=== PATIENT | male | born 1955 | race Caucasian/White ===

== ENCOUNTER 2020-08-25 13:54 | Outpatient (CLI) | payer MEDICARE, MEDICAID, SELFPAY ==
--- NOTE | 2020-08-25 06:00 | DI.RAD_ITS ---
Exam(s) XR PAIN CLINIC SACRIOILIAC 2V EXAM: XR PAIN CLINIC SACRIOILIAC 2V CLINICAL HISTORY: Dx: Sacroiliac Joint Dysfunction TECHNIQUE: 2D and realtime digital imaging was performed. CONTRAST MATERIAL: Refer to procedure report. COMPARISON: No exams were available for comparison FINDINGS: Fluoroscopy was provided for Dr. Espinal during the performance of a sacroiliac joint injection. Please refer to the procedure report for complete details. Ka,r=10.28 mGy IMPRESSION:
[2020-08-25 14:16] LABS: Platelet Count 112 10^3/uL (130-400)
[2020-08-25 14:31] VITALS: BP 112/69; PULSE 78; RESP 17; TEMP 36.5; O2SAT 96
--- NOTE | 2020-08-25 14:37 | PDOC.PAIN_ITS ---
Pain Clinic Procedure Note Procedure Note Procedure Note: INTRA-ARTICULAR SI JOINT INJECTION SKIP JOHNSON has been referred to the [facility] for intra- articular SI joint injection. Pre-operative diagnosis: sacroiliac joint dysfunction Post-operative diagnosis: same as above COMMENTS: patient has functionally impairing right sided low back pain with radiation to buttock Patient was interviewed and the medical record reviewed. There were no medical, pharmacologic, radiographic or other structural contraindications to attempting fluoroscopically guided intra-articular SI joint injection. Risks and expected side effects as well as potential benefit of the procedure were reviewed and voiced concerns addressed. The printed consent form was signed and witnessed. Standard time-out procedure was performed. Patient was placed in the prone position on the fluoroscopy table and automated blood pressure cuff and pulse oximeter applied. The skin entry point for approaching right SI joints was identified under the most advantageous fluoroscopic view and marked. Following thorough Chlorhexadine preparation of the skin and draping and 1% lidocaine infiltration of the skin entry point and subcutaneous tissues, a 22 gauge spinal needle was placed under fluoroscopic guidance into right SI joints was identified under the most advantageous fluoroscopic view and marked. Following thorough Chlorhexadine preparation of the skin and draping and 1% lidocaine infiltration of the skin entry point and subcutaneous tissues, a 22 gauge spinal needle was placed under fluoroscopic guidance into right SI joint. Intra-articular placement was confirmed by a clear arthrogram resulting from the injection of 0.25ml Omnipaque 240, 1ml 1% lidocaine, and 40mg Depomedrol were injected intra-articularily with an initial reproduction of a significant component of the usual pain. Vital signs were stable throughout the procedure and were as recorded in the docflowsheet by the nursing staff. Follow up plans and appointments were discussed with the patient. Post procedure instruction was given as documented in nursing documentation and having met discharge criteria, and was discharged from the [facility]. COMMENTS: patient tolerated procedure well. Pre-procedure VAS 8 out of 10 and post-procedure VAS score 6/10. Missael Espinal MD Pain Management CC: Emily [email or web address]
[2020-08-25 15:09] VITALS: BP 113/79; PULSE 76; RESP 18; O2SAT 96
[2020-08-25] MEDS: Omnipaque 240 MG/ML 50 ML BTL IJ (15:14)
[2020-08-25] MEDS: methylPREDNISolone ACETATE 80 MG/ML VIAL IJ (15:14)
== END 2020-08-25 13:55 | disposition home or self-care (01) ==
PROVIDERS: PCP Internal Medicine; Visit Provider Internal Medicine
DX: M53.3 Sacrococcygeal disorders, not elsewhere classified (principal)
CPT/HCPCS: 27096; 36415; 72200; 85049; J1040; Q9967

== ENCOUNTER 2020-09-24 09:35 | Outpatient (CLI) | payer MEDICARE, MEDICAID, SELFPAY ==
--- NOTE | 2020-09-24 06:00 | DI.RAD_ITS ---
Exam(s) XR PAIN CLINIC LUMBAR SP 2V EXAM: XR PAIN CLINIC LUMBAR SP 2V CLINICAL HISTORY: Dx:Lumbar Radiculopathy TECHNIQUE: 2D and realtime digital imaging was performed. CONTRAST MATERIAL: Refer to procedure report. COMPARISON: No exams were available for comparison FINDINGS: Fluoroscopy was provided for Dr. Aguilar during the performance of a lumbar epidural steroid injection. Please refer to the procedure report for complete details. Ka,r=23.52 mGy IMPRESSION: RADIATION DOSE DELIVERED:
[2020-09-24 10:14] VITALS: BP 109/73; PULSE 82; RESP 17; TEMP 36.6; O2SAT 97
[2020-09-24 10:21] LABS: Platelet Count 105 10^3/uL (130-400)
[2020-09-24 10:53] VITALS: BP 127/87; PULSE 84; RESP 16; O2SAT 94
--- NOTE | 2020-09-24 10:55 | PDOC.PAIN ---
Pain Clinic Procedure Note Procedure Note Procedure Note: Date of service: September 24, 2020 CAUDAL EPIDURAL STEROID WITH CATHETER INJECTION PROCEDURE NOTE COMMENTS: Office visit in our clinic on 02/18/20 and right sacroiliac joint injection on 08/25/20 with limited relief. Large lumbar midline scar with instrumented fusion. Using the caudal approach secondary to the large scar. Pre-procedure pain VAS of 7/10. Dx: Lumbosacral radiculopathy SKIP JOHNSON has been referred to the [facility] for lumbar epidural steroid injection. Patient was greeted by the nurse who verified patients name and . Patient was then taken to the fluoroscopy suite. Patient was interviewed and the medical record reviewed. There were no medical, pharmacologic, radiographic, or other structural contraindications to attempting fluoroscopically guided lumbar epidural steroid injection. Risks and expected side effects as well as potential benefits of the procedure were reviewed and voiced concerns addressed. The patient consent form was signed and witnessed. Standard time-out procedure was performed. Patient was placed in the prone position on the fluoroscopy table and automated blood pressure cuff and pulse oximeter applied. The skin entry point for entering/approaching the epidural space at the sacral hiatus and marked. Following thorough chlorhexadine preparation of the skin and draping and 1% lidocaine infiltration of the skin entry point and subcutaneous tissues, a 17 gauge Touhy needle was placed under fluoroscopic guidance and with loss of resistance technique into the epidural space. Needle tip placement and depth were aided and confirmed by fluoroscopy. There was no paresthesia or return of blood or CSF through the needle. An Arrow cath was thread to the L5-S1 interspace and 1 cc's of Omnipaque 240 was injected with clear epidural spread confirmed with fluoroscopy. 80mg depomedrol was injected. There was not any unusual discomfort expressed. Vital signs were stable throughout the procedure and were as recorded in nursing records. Follow up plans and appointments were discussed.Post procedure instruction was given as documented in nursing records and having met discharge criteria and was discharged from the [facility]. COMMENTS: Post-procedure pain VAS of 2/10 Chong Aguilar DO, MPH Pain Management
[2020-09-24] MEDS: Omnipaque 240 MG/ML 50 ML BTL IJ (10:58)
[2020-09-24] MEDS: methylPREDNISolone ACETATE 80 MG/ML VIAL IJ (10:58)
== END 2020-09-24 09:36 | disposition home or self-care (01) ==
LOC: PC 09:36
PROVIDERS: PCP Internal Medicine; Visit Provider Preventive Medicine Occupational Medicine
DX: D69.6 Thrombocytopenia, unspecified (principal); M54.17 Radiculopathy, lumbosacral region
CPT/HCPCS: 36415; 62323; 72100; 85049; J1040; Q9967

== ENCOUNTER 2022-10-03 04:19 | Outpatient (RCR) | payer MEDICARE, MEDICAID, SELFPAY ==
[2022-10-03] MEDS: Normal Saline Flush 10 ML SYR IVP (08:04)
[2022-10-03 08:31] LABS: Abs Immature Grans 0.03 10^3/uL (0.0-0.06); Absolute Basophil Count 0.01 10^3/uL (0.0-0.2); Absolute Eosinophil Count 0.09 10^3/uL (0.0-0.7); Absolute Monocyte Count 0.86 10^3/uL (0.1-0.8); Absolute Neutrophil Count 3.03 10^3/uL (1.2-6.7); Basophils % 0.2; Eosinophils % 1.8; HCT 40.1 % (40.0-50.0); HGB 12.3 g/dL (13.5-17.5); Immature Grans % 0.6; Lymphocytes % 19.9; MCH 26.4 pg (27.0-33.0); MCHC 30.7 % (32.0-36.0); MCV 86 fL (80-95); MPV 12.7 fL (8.0-11.0); Monocytes % 17.1; Neutrophils % 60.4; Platelet Count 128 10^3/uL (130-400); RBC 4.66 10^6/uL (4.36-5.78); RDW 15.1 % (11.8-14.1); WBC 5.02 10^3/uL (4.4-10.8)
[2022-10-03 08:50] LABS: ALT 12 U/L (16-63); AST 15 U/L (15-37); Albumin 3.9 g/dL (3.4-5.0); Alkaline Phosphatase 80 U/L (46-116); Anion Gap 3.4 mmol/L (3-11); BUN 13 mg/dL (7-18); Bilirubin, Total 0.9 mg/dL (0.2-1.0); CO2 32.6 mmol/L (21.0-32.0); CREATININE 1.1 mg/dL (0.70-1.30); Calcium 9.1 mg/dL (8.5-10.1); Chloride 102 mmol/L (98-107); Estimated GFR 73.58 (mL/min/1.73m2); FREE T4 0.86 ng/dL (0.76-1.46); Glucose 123 mg/dL (74-106); Magnesium 2.5 mg/dL (1.8-2.4); Potassium 4.4 mmol/L (3.5-5.1); Sodium 138 mmol/L (136-145); TSH 6.69 uIU/mL (0.36-3.74); Total Protein 8.1 g/dL (6.4-8.2)
== END 2022-10-21 23:59 | disposition home or self-care (01) ==
LOC: INF 04:19
PROVIDERS: PCP Internal Medicine; Visit Provider Internal Medicine Medical Oncology
DX: Z79.899 Other long term (current) drug therapy (principal); C79.51 Secondary malignant neoplasm of bone; Z45.2 Encounter for adjustment and management of vascular access device
CPT/HCPCS: 36591; 80053; 83735; 84439; 84443; 85025

== ENCOUNTER 2022-11-14 12:30 | Outpatient (RCR) | payer MEDICARE, MEDICAID, SELFPAY ==
[2022-10-26] MEDS: Normal Saline Flush 10 ML SYR IVP (08:33)
[2022-10-26 09:07] LABS: Abs Immature Grans 0.41 10^3/uL (0.0-0.06); HCT 31.6 % (40.0-50.0); HGB 9.7 g/dL (13.5-17.5); MCH 26.1 pg (27.0-33.0); MCHC 30.7 % (32.0-36.0); MCV 85 fL (80-95); MPV 12.6 fL (8.0-11.0); Platelet Count 187 10^3/uL (130-400); RBC 3.71 10^6/uL (4.36-5.78); RDW 16.7 % (11.8-14.1); RDW-SD 49.4 fL; WBC 4.38 10^3/uL (4.4-10.8)
[2022-10-26 09:29] LABS: ALT 14 U/L (16-63); AST 16 U/L (15-37); Albumin 3.2 g/dL (3.4-5.0); Alkaline Phosphatase 62 U/L (46-116); Anion Gap 7.2 mmol/L (3-11); BUN 8 mg/dL (7-18); Bilirubin, Total 0.5 mg/dL (0.2-1.0); CO2 31.8 mmol/L (21.0-32.0); CREATININE 1.1 mg/dL (0.70-1.30); Calcium 8.6 mg/dL (8.5-10.1); Chloride 102 mmol/L (98-107); Estimated GFR 73.58 (mL/min/1.73m2); FREE T4 1.15 ng/dL (0.76-1.46); Glucose 119 mg/dL (74-106); Magnesium 2.2 mg/dL (1.8-2.4); Potassium 4.1 mmol/L (3.5-5.1); Sodium 141 mmol/L (136-145); TSH 3.92 uIU/mL (0.36-3.74); Total Protein 7.9 g/dL (6.4-8.2)
[2022-10-26 10:30] LABS: Absolute Eosinophil Count 0.04 10^3/uL (0.0-0.7); Absolute Lymphocyte Count 1.66 10^3/uL (1.2-3.4); Absolute Monocyte Count 0.92 10^3/uL (0.1-0.8); Absolute Neutrophil Count 1.31 10^3/uL (1.2-6.7); Atypical Lymphocytes % 2; Bands % 0
[2022-10-26 10:31] LABS: Diff Comment Manual Differential; Metamyelocytes % 4; Myelocytes % 5; Polychromasia Present; Promyelocytes % 1
[2022-10-31] MEDS: Normal Saline Flush 10 ML SYR IVP (08:48)
[2022-10-31 09:17] LABS: Abs Immature Grans 0.06 10^3/uL (0.0-0.06); Absolute Basophil Count 0.01 10^3/uL (0.0-0.2); Absolute Eosinophil Count 0.01 10^3/uL (0.0-0.7); Absolute Lymphocyte Count 1.15 10^3/uL (1.2-3.4); Absolute Monocyte Count 1.41 10^3/uL (0.1-0.8); Basophils % 0.2; Eosinophils % 0.2; HCT 35.1 % (40.0-50.0); HGB 10.6 g/dL (13.5-17.5); Immature Grans % 1.4; Lymphocytes % 27.8; MCH 25.5 pg (27.0-33.0); MCHC 30.2 % (32.0-36.0); MCV 85 fL (80-95); MPV 11.9 fL (8.0-11.0); Monocytes % 34.1; Neutrophils % 36.3; Platelet Count 180 10^3/uL (130-400); RBC 4.15 10^6/uL (4.36-5.78); RDW-SD 51.3 fL; WBC 4.14 10^3/uL (4.4-10.8)
[2022-10-31 09:45] LABS: ALT 14 U/L (16-63); AST 17 U/L (15-37); Albumin 3.4 g/dL (3.4-5.0); Alkaline Phosphatase 64 U/L (46-116); Anion Gap 8.3 mmol/L (3-11); BUN 10 mg/dL (7-18); Bilirubin, Total 0.7 mg/dL (0.2-1.0); CO2 30.7 mmol/L (21.0-32.0); CREATININE 1.2 mg/dL (0.70-1.30); Calcium 9.1 mg/dL (8.5-10.1); Chloride 99 mmol/L (98-107); Estimated GFR 66.28 (mL/min/1.73m2); FREE T4 1.13 ng/dL (0.76-1.46); Glucose 148 mg/dL (74-106); Magnesium 2.3 mg/dL (1.8-2.4); Potassium 4.1 mmol/L (3.5-5.1); Sodium 138 mmol/L (136-145); TSH 2.23 uIU/mL (0.36-3.74); Total Protein 8.4 g/dL (6.4-8.2)
[2022-11-14] MEDS: Normal Saline Flush 10 ML SYR IVP (13:05)
[2022-11-14 13:28] LABS: Abs Immature Grans 0.25 10^3/uL (0.0-0.06); Absolute Basophil Count 0.02 10^3/uL (0.0-0.2); Absolute Eosinophil Count 0.14 10^3/uL (0.0-0.7); Absolute Monocyte Count 1.93 10^3/uL (0.1-0.8); Absolute Neutrophil Count 2.31 10^3/uL (1.2-6.7); Basophils % 0.3; Eosinophils % 2.1; HCT 39.9 % (40.0-50.0); HGB 12.2 g/dL (13.5-17.5); Immature Grans % 3.8; MCH 26.5 pg (27.0-33.0); MCHC 30.6 % (32.0-36.0); MCV 87 fL (80-95); MPV 12.7 fL (8.0-11.0); Monocytes % 29.5; Neutrophils % 35.3; Platelet Count 113 10^3/uL (130-400); RBC 4.61 10^6/uL (4.36-5.78); RDW 18.9 % (11.8-14.1); RDW-SD 59.9 fL; WBC 6.55 10^3/uL (4.4-10.8)
[2022-11-14 13:40] LABS: Diff Comment Diff Reviewed; RBC Morphology Normal
[2022-11-14 13:56] LABS: ALT 27 U/L (16-63); AST 20 U/L (15-37); Albumin 3.7 g/dL (3.4-5.0); Alkaline Phosphatase 61 U/L (46-116); Anion Gap 8.1 mmol/L (3-11); BUN 14 mg/dL (7-18); Bilirubin, Total 0.4 mg/dL (0.2-1.0); CO2 28.9 mmol/L (21.0-32.0); CREATININE 0.9 mg/dL (0.70-1.30); Calcium 8.8 mg/dL (8.5-10.1); Chloride 105 mmol/L (98-107); Estimated GFR 93.61 (mL/min/1.73m2); FREE T4 0.84 ng/dL (0.76-1.46); Glucose 107 mg/dL (74-106); Magnesium 2.2 mg/dL (1.8-2.4); Potassium 4.1 mmol/L (3.5-5.1); Sodium 142 mmol/L (136-145); TSH 3.34 uIU/mL (0.36-3.74); Total Protein 8.1 g/dL (6.4-8.2)
== END 2022-11-21 23:59 | disposition home or self-care (01) ==
LOC: INF 12:30
PROVIDERS: PCP Internal Medicine; Visit Provider Internal Medicine Medical Oncology
DX: Z79.899 Other long term (current) drug therapy (principal); C79.51 Secondary malignant neoplasm of bone; Z45.2 Encounter for adjustment and management of vascular access device
CPT/HCPCS: 36591; 80053; 83735; 84439; 84443; 85025